=== PATIENT | male | born 1980 | race Caucasian/White ===

== ENCOUNTER 2024-10-21 22:29 | Emergency (ER) | payer OTHER ==
[~2024-10-21] VITALS: Ht 170.2 cm; Wt 75.0 kg
[2024-10-21 22:39] VITALS: TEMP 36.6; O2SAT 97
[2024-10-22 00:40] VITALS: BP 142/86; PULSE 101; RESP 16; O2SAT 98
== END 2024-10-22 00:44 | disposition home or self-care (01) ==
LOC: ER 22:29
DX: R00.2 Palpitations (principal); T44.995A Adverse effect of other drug primarily affecting the autonomic nervous system, initial encounter; Y92.89 Other specified places as the place of occurrence of the external cause
CPT/HCPCS: 99283